=== PATIENT | female | born 1985 | race Caucasian/White ===

== ENCOUNTER → 2018-03-05 11:30 | Outpatient (CLI) | payer MEDICAID, SELFPAY | PROVIDERS: PCP Nurse Practitioner Family; Visit Provider Nurse Practitioner Family | DX: R00.0 Tachycardia, unspecified (principal) | CPT/HCPCS: 93225; 93226 ==

== ENCOUNTER → 2019-08-05 10:59 | Outpatient (CLI) | payer BC, SELFPAY ==
--- NOTE | 2019-08-05 11:09 | XR_ITS ---
PROCEDURE: XR KNEE RT 3V CLINICAL INDICATION: PAIN COMPARISON: KNEE3R KNEE-3 VIEWS-RT from 07/01/2013 KNEE3L KNEE-3 VIEWS-LT from 07/01/2013 FINDINGS: No fracture or dislocation. No lytic or blastic change. There is normal mineralization. The joint spaces are well-preserved. No significant degenerative/arthritic changes. No erosive changes evident. Other findings:None. IMPRESSION: No acute findings. Dictated by: Elio Gould MD 08/05/2019 13:16 Electronically signed by Elio Gould MD in [place] 08/05/2019 13:16
== END ==
PROVIDERS: PCP Nurse Practitioner Family; Visit Provider Nurse Practitioner Family
DX: M25.561 Pain in right knee (principal)
CPT/HCPCS: 73562

== ENCOUNTER → 2019-08-19 14:29 | Outpatient (CLI) | payer BC, SELFPAY ==
--- NOTE | 2019-08-19 14:36 | MR_ITS ---
PROCEDURE: MR KNEE RT WO CON CLINICAL INDICATION: ACUTE PAIN OF RIGHT KNEE, SWELLING RIGHT KNEE JOINT Lateral knee pain COMPARISON: XR KNEE RT 3V from 08/05/2019 TECHNIQUE: Routine multiplanar multi echo sequences are performed without gadolinium enhancement. FINDINGS: The cruciate ligaments, collateral ligaments, patellar tendon, and quadriceps tendon appear intact. No evidence of meniscal tear. The patellar cartilage is preserved. There is a small knee joint effusion. No Gee's cyst evident. No bone bruise or abnormal bone marrow signal intensity apparent IMPRESSION: No evidence of internal derangement. Small knee joint effusion Dictated by: Elio Gould MD 08/21/2019 09:38 Electronically signed by Elio Gould MD in [place] 08/21/2019 09:38
== END ==
PROVIDERS: PCP Nurse Practitioner Family; Visit Provider Family Medicine
DX: M25.561 Pain in right knee (principal); M25.461 Effusion, right knee
CPT/HCPCS: 73721

== ENCOUNTER 2020-09-06 09:05 | Emergency (ER) | payer BC, SELFPAY ==
[2020-09-06 09:07] VITALS: BP 130/95; PULSE 76; RESP 16; TEMP 36.6; O2SAT 98; BMI 25.8
--- NOTE | 2020-09-06 09:18 | HMH.EDGENADL ---
ED Disposition Clinical Impression: Cervical radiculopathy Disposition: Home, Self-Care Condition on Discharge: Good Instructions: DI for Cervical Radiculopathy Additional Instructions: Prednisone and Toradol as prescribed. Follow-up with primary care doctor this week. Additional instructions for NECK PAIN: See your physician as soon as possible for further evaluation. Return immediately if neck pain becomes intolerable, or if fever, numbness or weakness of your arms or legs, loss of control of your bowels or bladder. Prescriptions: Ketorolac Tromethamine [Toradol 10mg tablet] 10 mg PO Q6HP PRN #10 tab PRN Reason: Moderate Pain Transmission Status: Pending to [id number] predniSONE [Prednisone 20mg Tab] 20 mg PO BID #10 tab Transmission Status: Pending to [id number] Referrals: Kenyatta Trujillo APRN [Primary Care Provider] - - Critical Care Critical Care Time: No Attestation: On 09/06/20, the high probability of a clinically significant, sudden or life threatening deterioration of the following system(s) required my full and direct attention, intervention and personal management. The time I documented below is in addition to time spent performing reported procedures but includes the following listed in this critical care notation. Medical Decision Making - Jeff Inquiry Pt receiving controlled substance: No Vital Signs: 09/06/20 09:07 Temperature 98 F Temperature Source Oral Pulse Rate [Radial] 76 Respiratory Rate 16 Blood Pressure [Right Arm] 130/95 H Blood Pressure Mean [Right Arm] 106 Blood Pressure Position [Right Arm] Sitting 02 Sat by Pulse Oximetry 98 Oxygen Delivery Method Room Air Medical Decision Narrative: Symptoms of cervical radiculopathy. Advised patient she may have injured a disc by jarring herself in the injury. Cervical spine fracture not suspected. I will treat for cervical radiculopathy and advised to follow-up this week and may need MRI if not improving. General Adult HPI - General Stated complaint: AO 09/05/20 1900 Pain in upper back near left should Time Seen by Provider: 09/06/20 09:18 - History of Present Illness HPI narrative: States that she fell while walking in a [place] yesterday. She says the brunt of the fall was onto her right knee. During the night at about 2 or 3 AM she began experiencing pain in her left trapezius area that goes up the left side of her neck. The left hand feels a little tingly. Pain worsens when she turns her head to the left. No history of prior neck problems. She did not hit her head and did not have neck pain at the time of the fall. - Related Data Home Medications Medication Instructions Recorded Confirmed Levothyroxine Sodium [Synthroid 112 mcg PO DAILY 09/06/20 09/06/20 112mcg (0.112mg) tablet] atenoloL [Atenolol 25mg Tab] 25 mg PO DAILY 09/06/20 09/06/20 Previous Rx's Medication Instructions Recorded Ketorolac Tromethamine [Toradol 10 mg PO Q6HP PRN #10 tab 09/06/20 10mg tablet] predniSONE [Prednisone 20mg 20 mg PO BID #10 tab 09/06/20 Tab] Allergies Allergy/AdvReac Type Severity Reaction Status Date / Time NO KNOWN ALLERGIES Allergy Uncoded 03/21/17 15:09 [facility] History - Hepatitis A Screen Attestation statement:: This patient has been screened for Hepatitis A risk factors. I have reviewed the patient's past medical history: Yes ROS Obtained: Yes Systems reviewed as appropriate & no additional complaints - Musculoskeletal Musculoskeletal: Reports as per HPI, Denies neck pain - Neurologic Neurologic: Reports tingling, Denies weakness Physical Exam - General General appearance: alert, in no apparent distress - Head Head exam: atraumatic, normocephalic - Eye Eye exam: Present: normal appearance, EOMI - ENT ENT exam: Present: mucous membranes moist - Neck Neck exam: Present: normal inspection, tenderness - Expanded Neck E
[2020-09-06 10:01] VITALS: BP 125/74; PULSE 78; RESP 16; TEMP 36.6; O2SAT 98
== END 2020-09-06 10:03 | disposition home or self-care (01) ==
PROVIDERS: Emergency Provider Emergency Medicine; PCP Nurse Practitioner Family
DX: M54.12 Radiculopathy, cervical region (principal)
CPT/HCPCS: 96372; 99281

== ENCOUNTER → 2021-06-02 13:52 | Outpatient (CLI) | payer BC, SELFPAY ==
--- NOTE | 2021-06-02 13:59 | US_ITS ---
FINAL REPORT CLINICAL HISTORY: THYROMEGALY-- fu hashimatos FINDINGS: ULTRASOUND OF THE THYROID The right lobe of the thyroid measures 1.1 x 2.8 x 0.8 cm. The left lobe of the thyroid measures 0.8 x 2.3 x 1.1 cm. The thyroid is small and heterogeneous with decreased echogenicity. Findings can be seen with chronic thyroiditis. There is decreased flow. No discrete nodule is identified. IMPRESSION: Small heterogeneous thyroid with decreased echogenicity. Findings can be seen with chronic thyroiditis. Reviewed, Interpreted and Dictated by Juan Jose Lara III, MD Transcribed by NICOLE Chavez Authenticated by Juan Jose Lara III, MD on 06/02/2021 03:56:25 PM [facility]
== END ==
PROVIDERS: PCP Nurse Practitioner Family; Visit Provider Nurse Practitioner Family
DX: E01.0 Iodine-deficiency related diffuse (endemic) goiter (principal)
CPT/HCPCS: 76536

== ENCOUNTER → 2021-08-31 15:53 | Outpatient (CLI) | payer BC, SELFPAY ==
[2021-08-31 16:52] LABS: Basophils % 0.5 % (0.1-2.0); Eosinophils # 0.1 K/mm3 (0.0-0.4); Eosinophils % 1.7 % (0.1-12.0); Hematocrit 33.8 % (37.0-47.0); Hemoglobin 11.5 g/dL (12.2-16.2); Lymphocytes # 1.8 K/mm3 (0.7-4.5); Lymphocytes % 26.2 % (10-50); Mean Corpuscular HGB Conc 34.1 g/dL (31.8-35.4); Mean Platelet Volume 10.6 fl (7.4-10.4); Monocytes # 0.3 K/mm3 (0.1-1.0); Monocytes % 3.7 % (1.7-9.3); Neutrophils # 4.7 K/mm3 (1.8-7.8); Neutrophils % 67.9 % (37.0-80.0); Platelet Count 224 K/mm3 (142-424); Red Blood Count 3.72 M/mm3 (4.20-5.40); Red Cell Distribution Width 13.7 % (11.5-17.5); White Blood Count 6.9 K/mm3 (4.8-10.8)
[2021-08-31 17:09] LABS: HCG Qualitative, Serum Negative (Negative)
[2021-08-31 17:42] LABS: Thyroid Stimulating Hormone 0.35 uIU/mL (0.465-4.68)
[2021-08-31 17:46] LABS: Ferritin 14.2 ng/ml (6.24-137)
[2021-09-02 08:29] LABS: Triiodothyronine (T3) Free 2.6 pg/mL (2.0-4.4)
== END ==
PROVIDERS: Visit Provider Nurse Practitioner Family
DX: R00.0 Tachycardia, unspecified (principal); E03.9 Hypothyroidism, unspecified; E06.3 Autoimmune thyroiditis; N93.9 Abnormal uterine and vaginal bleeding, unspecified
CPT/HCPCS: 36415; 82728; 84439; 84443; 84481; 84703; 85025

== ENCOUNTER 2023-04-14 17:01 | Outpatient (CLI) | payer BC, SELFPAY ==
[2023-04-14 18:27] LABS: Thyroid Stimulating Hormone 1.34 uIU/mL (0.465-4.68)
[2023-04-14 18:31] LABS: Ferritin 9.14 ng/ml (6.24-137)
[2023-04-14 20:38] LABS: 25-OH Vitamin D, Total 44.1 ng/mL (30-100)
[2023-04-14 20:41] LABS: Free T4 (Free Thyroxine) 1.28 ng/dl (0.78-2.19)
[2023-04-14 22:52] LABS: Vitamin B12 497 pg/mL (239-931)
[2023-04-16 09:06] LABS: Triiodothyronine (T3) Free 3.5 pg/mL (2.0-4.4)
[2023-04-19 10:15] LABS: Triiodothyronine (T3) Reverse 15.9
== END 2023-04-14 23:59 ==
LOC: LAB.DROPOF 17:01
PROVIDERS: PCP Nurse Practitioner Family; Visit Provider Nurse Practitioner Family
DX: E03.9 Hypothyroidism, unspecified (principal); E06.3 Autoimmune thyroiditis; R63.5 Abnormal weight gain; D64.9 Anemia, unspecified; Z68.28 Body mass index [BMI] 28.0-28.9, adult
CPT/HCPCS: 82306; 82607; 82728; 84439; 84443; 84481; 84482

== ENCOUNTER 2023-06-28 11:54 | Outpatient (CLI) | payer BC, SELFPAY ==
--- NOTE | 2023-06-28 12:03 | XR_ITS ---
FINAL REPORT CLINICAL HISTORY: right wrist pain/swelling COMPARISON: None FINDINGS: RIGHT WRIST Three views demonstrate no acute fracture or dislocation. The visualized joint spaces are normally aligned. The soft tissues are unremarkable. IMPRESSION: No acute bony abnormality. Reviewed, Interpreted and Dictated by Keegan Madrid MD Transcribed by Koki Fuller Authenticated and . [facility]
--- NOTE | 2023-06-28 12:03 | XR_ITS ---
FINAL REPORT CLINICAL HISTORY: hand/wrist pain, swelling COMPARISON: None FINDINGS: RIGHT HAND Three views demonstrate no acute fracture or dislocation. The visualized joint spaces are normally aligned. The soft tissues are unremarkable. IMPRESSION: No acute bony abnormality. Reviewed, Interpreted and Dictated by Keegan Madrid MD Transcribed by Koki Fuller Authenticated and [facility]
--- NOTE | 2023-06-28 12:03 | XR_ITS ---
FINAL REPORT CLINICAL HISTORY: left wrist pain and stiffness COMPARISON: None FINDINGS: LEFT WRIST Three views demonstrate no acute fracture or dislocation. The visualized joint spaces are normally aligned. The soft tissues are unremarkable. IMPRESSION: No acute bony abnormality. Reviewed, Interpreted and Dictated by Keegan Madrid MD Transcribed by Koki Fuller Authenticated and [facility]
[2023-06-28 14:35] LABS: Erythrocyte Sedimentation Rate 12 mm/hr (0-20)
[2023-06-28 16:33] LABS: Uric Acid 6.3 mg/dl (2.5-6.2)
[2023-06-29 10:59] LABS: RA Latex Turbid. <10.0 IU/mL (<14.0)
[2023-06-29 14:57] LABS: Antinuclear Antibodies, IFA Negative (.)
== END 2023-06-28 23:59 ==
LOC: RAD 11:54
PROVIDERS: PCP Nurse Practitioner Family; Visit Provider Nurse Practitioner Family
DX: M25.532 Pain in left wrist (principal); M25.531 Pain in right wrist; M25.50 Pain in unspecified joint
CPT/HCPCS: 36415; 73110; 73120; 84550; 85651; 86038; 86431

== ENCOUNTER 2024-02-23 16:40 | Outpatient (CLI) | payer BC, SELFPAY ==
[2024-02-23 17:33] LABS: Free T4 (Free Thyroxine) 1.06 ng/dl (0.78-2.19)
[2024-02-23 18:04] LABS: T4 (Thyroxine) 8.7 ug/dl (5.53-11.0)
[2024-02-23 18:17] LABS: Thyroid Stimulating Hormone 0.09 uIU/mL (0.465-4.68)
[2024-02-24 08:18] LABS: Thyroid Peroxidase Antibodies 68 IU/mL (0-34); Triiodothyronine (T3) Free 2.9 pg/mL (2.0-4.4)
[2024-02-26 15:16] LABS: Thyroglobulin Level <1.0 IU/mL (0.0-0.9)
== END 2024-02-23 23:59 | disposition home or self-care (01) ==
LOC: LAB.DROPOF 16:41
PROVIDERS: PCP Nurse Practitioner Family; Visit Provider Nurse Practitioner Family
DX: E03.8 Other specified hypothyroidism (principal); E06.3 Autoimmune thyroiditis
CPT/HCPCS: 84436; 84439; 84443; 84481; 86376; 86800

== ENCOUNTER 2024-05-27 10:37 | Outpatient (CLI) | payer BC, SELFPAY ==
[2024-05-27 14:26] LABS: Free T4 (Free Thyroxine) 1.09 ng/dl (0.78-2.19)
[2024-05-27 14:30] LABS: T4 (Thyroxine) 9.1 ug/dl (5.53-11.0)
[2024-05-27 14:43] LABS: Thyroid Stimulating Hormone 0.19 uIU/mL (0.465-4.68)
[2024-05-27 14:51] LABS: HIV Combo NEGATIVE (Negative)
[2024-05-27 15:00] LABS: Hepatitis C Ab Qual. W/ RFX NEGATIVE (Negative)
[2024-05-28 08:17] LABS: Triiodothyronine (T3) Free 2.7 pg/mL (2.0-4.4)
== END 2024-05-27 23:59 | disposition home or self-care (01) ==
LOC: LAB.DROPOF 05-28 17:20
PROVIDERS: PCP Nurse Practitioner Family; Visit Provider Nurse Practitioner Family
DX: E03.8 Other specified hypothyroidism (principal); E06.3 Autoimmune thyroiditis; Z11.59 Encounter for screening for other viral diseases
CPT/HCPCS: 84436; 84439; 84443; 84481; 86803; 87389